=== PATIENT | male | born 1995 | race Caucasian/White ===

== ENCOUNTER 2016-12-21 15:47 | Emergency (ER) | payer SELFPAY ==
[2016-12-21 15:59] VITALS: BP 151/93
[2016-12-21] MEDS ORDERED: Albuterol 0.083% 2.5 MG/3 ML Neb Soln NEB ONE (16:24)
--- NOTE | 2016-12-21 16:43 | EDM.PDOC ---
ED HPI GENERAL MEDICAL PROBLEM - General Chief Complaint: Respiratory Problem Stated Complaint: SOB Time Seen by Provider: 12/21/16 15:56 Source of Information: Reports: Patient, RN Notes Reviewed - History of Present Illness INITIAL COMMENTS - FREE TEXT/NARRATIVE: 21-year-old male presents to ED having had an episode of fairly severe shortness of breath about an hour ago while driving. He had been at work earlier and not having any prior difficulty this morning or while working. He states he was feeling somewhat short of breath last evening for a while and then that all resolved. He did have an illness a couple of months ago with fever cough shortness of breath and found to have RSV and adenovirus. He has not been coughing recently. His breathing is back to normal now that he is here at the ED. Not been having any chest pain with or without deep breathing. No recent fever chills cough or sore throat. No leg pain, swelling, warmth or erythema. There is history of DVT in the family. 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 Denies: Pleuritic Chest Pain , Cough, Hemoptysis Cardiovascular: Denies: Chest Pain GI/Abdominal: Denies: Abdominal Pain, Nausea, Vomiting Musculoskeletal: Denies: Neck Pain, Shoulder Pain, Back Pain Skin: Reports: No Symptoms Neurological: Reports: No Symptoms ED EXAM, GENERAL - Physical Exam Exam: See Below General Appearance: Alert, No Apparent Distress Eye Exam: Bilateral Eye: PERRL Throat/Mouth: Normal Inspection, Normal Oropharynx Head: Atraumatic. No: Facial Swelling Neck: Supple, Full Range of Motion Respiratory/Chest: No Respiratory Distress, Lungs Clear, Normal Breath Sounds, No Accessory Muscle Use. No: Rales, Rhonchi, Wheezing Cardiovascular: Regular Rate, Rhythm GI/Abdominal: Soft, Non-Tender Extremities: No: Pedal Edema, Leg Pain, Increased Warmth, Redness Neurological: Oriented, No Motor/Sensory Deficits Skin Exam: Warm, Dry, Normal Color Course - Vital Signs Last Recorded V/S: Last Vital Signs Temp 98 F 12/21/16 15:54 Pulse 79 12/21/16 15:54 Resp 18 12/21/16 15:54 BP 151/93 H 12/21/16 15:54 Pulse Ox 100 12/21/16 16:33 - Orders/Labs/Meds Orders: Active Orders 24 hr Category Date Time Status RT Aerosol Therapy [RC] ASDIRECTED Care 12/21/16 16:24 Active Chest 1V Frontal [CR] Stat Exams 12/21/16 16:24 Taken Labs: Laboratory Tests 12/21/16 Range/Units 16:36 D-Dimer, Quantitative < 0.19 L (0.19-0.59) mg/L Meds: Medications Discontinued Medications Generic Name Dose Route Start Last Admin Trade Name Freq PRN Reason Stop Dose Admin Albuterol 2.5 mg 12/21/16 16:24 12/21/16 16:33 Proventil Neb Soln NEB 12/21/16 16:25 2.5 mg ONETIME ONE Administration - Re-Assessments/Exams Free Text/Narrative Re-Assessment/Exam: 12/21/16 18:06. Chest x-ray does not show obvious infiltrate, he has not been coughing. We have given him an albuterol neb. His d-dimer did come back negative at 0.19. He's been breathing and resting very comfortably since time of my initial exam. Sats been running in the 99-100% range. Discharge instructions as documented Departure - Departure Time of Disposition: 18:00 Disposition: Home, Self-Care 01 Condition: Fair Clinical Impression: Dyspnea Qualifiers: Dyspnea type: unspecified Qualified Code(s): R06.00 - Dyspnea, unspecified - Discharge Information Referrals: PCP,Not In Area [Primary Care Provider] - Forms: ED Department Discharge Additional Instructions: Rest, use albuterol inhaler if needed for further difficulty with wheezing or shortness of breath. Follow-up clinic as needed, return to ED as needed if symptoms worsening in any way - My Orders Last 24 Hours: My Active Orders 12/21/16 16:24 RT Aerosol Therapy [RC] ASDIRECTED Chest 1V Frontal [CR] Stat - Assessment/Plan Last 24 Hours: My Active Orders 12/21/16 16:24 RT Aerosol Therapy [RC] ASDIRECTED Chest 1V Frontal [CR] Stat
--- NOTE | 2016-12-22 07:06 | CR ---
Chest: Portable view of the chest was obtained. Comparison: No previous study. Heart size and mediastinum are normal. Lungs are clear. Bony structures are grossly intact. Impression: 1. Nothing acute is identified on portable chest x-ray. Diagnostic code #1
== END 2016-12-21 18:18 | disposition home or self-care (01) ==
LOC: JD.ED 15:47
DX: R06.00 Dyspnea, unspecified (principal); Z79.899 Other long term (current) drug therapy
CPT/HCPCS: 36415; 71010; 71010-26; 85379; 94664; 99283; 99285-25